=== PATIENT | female | born 1980 | race Caucasian/White ===

== ENCOUNTER 2024-03-08 00:10 | Emergency (ER) | payer SELFPAY ==
[2024-03-08 00:23] VITALS: BP 148/86; PULSE 104; TEMP 36.7; O2SAT 100; BMI 30.1
--- NOTE | 2024-03-08 00:40 | PC.NURSE ---
Redness and swelling to left elbow, skin intact.
--- NOTE | 2024-03-08 00:48 | ED_ITS ---
HPI HPI - General Adult General Chief complaint: Allergic Reaction Stated complaint: BEE STING L ARM Time Seen by Provider: 03/08/24 00:43 Source: patient Mode of arrival: walk-in Limitations: no limitations History of Present Illness HPI narrative: 44-year-old female presents to the emergency department for redness and swelling at the site of the bee sting. She was stung 2 days ago and it has been getting more red and more swollen so she was concerned and she came in. No tongue swelling or generalized rash. Symptom is continuous. Related Data Previous Rx's ?Medication ?Instructions ?Recorded prednisone 10 mg tablet See Rx Instructions .Route 03/08/24 .COMPLEX #30 tabs Allergies Allergy/AdvReac Type Severity Reaction Status Date / Time No Known Drug Allergies Allergy Verified 03/08/24 00:22 Opioid HPI Opioid Management Most Recent Opioid Data: No Data to Display Review of Systems ROS Narrative A ten point review of systems is negative except as noted above. Exam Narrative Exam Narrative: Nurses note and vital signs reviewed and patient is not hypoxic. General: The patient appears well and in no apparent distress. Patient is resting comfortably on cart. Skin: Warm, dry, no pallor noted. There is a large area of erythema to the left upper arm. No rashes present elsewhere. Head: Normocephalic, atraumatic Eye: Normal conjunctiva, no drainage Ears, Nose, Mouth, and Throat: oral mucosa is moist. Nares patent. Mouth without vesicles. Tongue not swollen Cardiovascular: Regular Rate and Rhythm Respiratory: Patient is in no distress, no accessory muscle use, lungs are clear to auscultation, no wheezing, rales or rhonchi Back: non-tender GI: Nontender Musculoskeletal: No joint swelling Neurological: Awake and alert Psychiatric: Cooperative Constitutional Vital Signs, click to edit/add: Last Vital Signs Temp 98.1 F 03/08/24 00:23 Pulse 104 H 03/08/24 00:23 Resp 18 03/08/24 00:23 BP 148/86 H 03/08/24 00:23 Pulse Ox 100 03/08/24 00:23 O2 Del Method Room Air 03/08/24 00:23 Course Vital Signs Vital signs: Vital Signs Temperature 98.1 F 03/08/24 00:23 Pulse Rate 104 H 03/08/24 00:23 Respiratory Rate 18 08/06/24 00:23 Blood Pressure 148/86 H 03/08/24 00:23 Pulse Oximetry 100 03/08/24 00:23 Oxygen Delivery Method Room Air 03/08/24 00:23 Temperature 98.1 F 03/08/24 00:23 Pulse Rate 104 H 03/08/24 00:23 Respiratory Rate 18 03/08/24 00:23 Blood Pressure 148/86 H 03/08/24 00:23 Pulse Oximetry 100 03/08/24 00:23 Oxygen Delivery Method Room Air 03/08/24 00:23 Medical Decision Making MDM Narrative Medical decision making narrative: She was given prednisone here and prescribed prednisone and was recommended Benadryl and ice. Treatment diagnosis and follow-up were discussed with the patient. I have no clinical suspicion of infection. Differential Diagnosis Differential Diagnosis: Bee sting, cellulitis Discharge Plan Discharge Stand Alone Forms: Portal Instructions Chief Complaint: Allergic Reaction Clinical Impression: Bee sting reaction Patient Disposition: Home, Self-Care Time of Disposition Decision: 00:47 Condition: Good Mode of Transportation: Private Vehicle Prescriptions / Home Meds: New prednisone 10 mg tablet See Rx Instructions .ROUTE .COMPLEX Qty: 30 0RF Rx Instructions: 4 by mouth daily for three days then 3 by mouth daily for three days then 2 by mouth daily for three days then 1 by mouth daily for three days Print Language: [place]ian Instructions: Insect Bite or Sting (ED)
[2024-03-08] MEDS: PREDNISONE 20 MG TABLET 40 MG PO (00:52)
== END 2024-03-08 01:11 | disposition home or self-care (01) ==
PROVIDERS: Emergency Provider Emergency Medicine
DX: T63.441A Toxic effect of venom of bees, accidental (unintentional), initial encounter (principal)
CPT/HCPCS: 99283; J7512